=== PATIENT | male | born 1990 | race Caucasian/White ===

== ENCOUNTER → 2022-05-10 | Outpatient (CLI) | payer BC ==
[~2022-05-10] MED LIST: CYCL10 PO; Keflex500 MG PO
== END | disposition home or self-care (01) ==
LOC: LAB 15:14 → LAB SHORT 15:14
DX: D22.5 Melanocytic nevi of trunk (principal)
CPT/HCPCS: 88305

== ENCOUNTER 2024-07-22 07:26 | Day surgery (SDC) | payer BC ==
[2024-07-22] VITALS (12 sets, daily range): BP systolic 96–161; BP diastolic 47–96
[~2024-07-22] VITALS: Ht 188 cm; Wt 136.0 kg
[~2024-07-22 07:26] MED LIST changes: +Adipex-P37.5 M1 PO; +Dexamethasone Sod Phos 10 MG/ML 1ML VIAL ONE; +Ketorolac Tromethamine 30mg Vial ONE; +LOSA25 PO; +Ondansetron HCl 2 MG / ML 2ML Vial ONE; +propofoL 50 ML IV ONE
[2024-07-22] MEDS ORDERED: Lactated Ringer's 1,000 ML IV SCH (07:40)
[2024-07-22] MEDS ORDERED: CeFAZolin Sodium 2,000 MG in NS 100 ML IV SCH (07:40)
[2024-07-22] MEDS ORDERED: CeFAZolin Sodium 3,000 MG in NS 100 ML IV SCH (07:55)
--- NOTE | 2024-07-22 08:00 | NUR ---
INTO [facility]. PT A&OX4-DENIES PAIN, BUT REPORTS FEELING "ANXIOUS". HISTORY AND ALLERGIES REVIEWED. LUNGS CLEAR-NO NOTED SOB-SATS>90% ON RA. NPO STATUS CONFIRMED. CHLORHEXIDINE SHOWER AND WIPE X 2. RIDE HOME CONFIRMED.
[2024-07-22] MEDS ORDERED: Bupivacaine 0.5% HCl 5 MG/ML 30MLVIAL ONE (08:15)
[2024-07-22] MEDS ORDERED: HYDROmorphone HCl/Pf 1MG SYR ONE (09:03)
[2024-07-22] MEDS ORDERED: Acetaminophen 500 MG Tab PO SCH (09:05)
[2024-07-22] MEDS ORDERED: Acetaminophen 500 MG Tab ONE (09:06)
[2024-07-22] MEDS ORDERED: propofoL 20 ML IV ONE ×3 (09:14→09:46)
[2024-07-22] MEDS ORDERED: FentaNYL Citrate 50 MCG/ML 2 ML Injection ONE ×2 (09:18→09:47)
[2024-07-22] MEDS ORDERED: Ketamine HCl 100 MG / ML 5ML Vial ONE (09:21)
[2024-07-22] MEDS ORDERED: EpiNEPhrine 1 MG/1 ML 1ML Vial ONE (09:24)
[2024-07-22] MEDS ORDERED: propofoL 40 ML IV ONE (09:29)
--- NOTE | 2024-07-22 12:01 | NUR ---
Discharge instructions reviewed with patient. Patient verbalizes understanding. Copy given to patient to take home. Prescription already filled by pt. Dressings. c/d/i. Aquacel/oliver provided for dressing change. Patient States Post-Procedure ride home has been arranged. Discharged via wheelchair to private car for ride home.
== END 2024-07-22 12:04 | disposition home or self-care (01) ==
LOC: ORSCMMR 07:26 → ORD 09:00 → ORSCMMR 09:00 → ORD 10:00 → ORSCMMR 12:04
PROVIDERS: Orthopaedic Surgery
PROC: 01X40Z4 Transfer Ulnar Nerve to Ulnar Nerve, Open Approach (ICD-10-PCS; principal; 2024-07-22 09:00)
PROC: 01N50ZZ Release Median Nerve, Open Approach (ICD-10-PCS; principal; 2024-07-22 09:00)
DX: G56.02 Carpal tunnel syndrome, left upper limb (principal); G56.22 Lesion of ulnar nerve, left upper limb; I10 Essential (primary) hypertension; E78.5 Hyperlipidemia, unspecified; F41.9 Anxiety disorder, unspecified; E66.9 Obesity, unspecified; Z68.38 Body mass index [BMI] 38.0-38.9, adult; Z79.899 Other long term (current) drug therapy
CPT/HCPCS: A9270; J0171; J0690; J1100; J1171; J1885; J2405; J2704; J3010; J7120